=== PATIENT | male | born 1950 | race Caucasian/White ===

== ENCOUNTER 2017-12-15 01:23 | Emergency (ER) | payer OTHER | END 2017-12-15 03:07 | disposition home or self-care (01) | LOC: M ED 01:23 | DX: S01.01XA Laceration without foreign body of scalp, initial encounter (principal); W11.XXXA Fall on and from ladder, initial encounter; Y92.89 Other specified places as the place of occurrence of the external cause | CPT/HCPCS: 12001 ==

== ENCOUNTER → 2019-01-10 | Outpatient (REF) | payer MEDICARE, OTHER ==
[~2019-01-10] MED LIST: PERC5TAB12 PO; XARE10TA PO
[2019-01-10 17:40] LABS: ALT/SGPT 37 U/L (12-78); BILIRUBIN,TOTAL 0.7 MG/DL (0.2-1.0); BLOOD UREA NITROGEN 19 MG/DL (7-18); CALCIUM LEVEL 8.8 MG/DL (8.8-10.2); CARBON DIOXIDE LEVEL 28 MEQ/L (21-32); CHLORIDE LEVEL 107 MEQ/L (98-107); CHOLESTEROL LEVEL 240 MG/DL (<200); CHOLESTEROL RISK RATIO 3.428 (<5); CREATININE FOR GFR 0.78 MG/DL (0.70-1.30); FREE T4 0.98 NG/DL (0.76-1.46); GLOMERULAR FILTRATION RATE > 60.0 (>49); GLUCOSE, FASTING 85 MG/DL (70-100); HDL CHOLESTEROL 70 MG/DL (>40); LDL CHOLESTEROL 149 MG/DL (<100); NON-HDL-C 170 MG/DL; POTASSIUM SERUM 4.2 MEQ/L (3.5-5.1); SODIUM LEVEL 141 MEQ/L (136-145); THYROID STIMULATING HORMONE 0.963 uIU/ML (0.358-3.740); TOTAL PROTEIN 7.2 GM/DL (6.4-8.2); TRIGLYCERIDES LEVEL 105 MG/DL (<150)
[2019-01-10 17:54] LABS: BASO # 0.1 10^3/uL (0.0-0.2); BASO % 0.9 % (0.0-1.0); EOS # 0.1 10^3/uL (0.0-0.50); EOS % 1.6 % (0.0-3.0); HEMATOCRIT 49.3 % (42.0-52.0); HEMOGLOBIN 16.7 g/dl (13.5-17.5); LYMPH # 1.6 10^3/uL (1.5-4.5); LYMPH % 25.7 % (24.0-44.0); MEAN CORPUSCULAR HEMOGLOBIN 32.4 pg (27.0-33.0); MEAN CORPUSCULAR HGB CONC 33.9 g/dl (32.0-36.5); MEAN CORPUSCULAR VOLUME 95.5 fl (80.0-96.0); MONO # 0.6 10^3/uL (0.0-0.8); MONO % 8.9 % (0.0-5.0); NEUTROPHILS % 62.7 % (36.0-66.0); PLATELET COUNT, AUTOMATED 237 10^3/uL (150-450); RED BLOOD COUNT 5.16 10^6/uL (4.30-6.10); WHITE BLOOD COUNT 6.4 10^3/uL (4.0-10.0)
== END ==
LOC: M SFHCCLAY 11:42
PROVIDERS: ATTEND Nurse Practitioner Family
DX: I10 Essential (primary) hypertension (principal); Z23 Encounter for immunization
CPT/HCPCS: 80053; 80061; 84439; 84443; 85025; 90670; 93005; G0009; G0463

== ENCOUNTER → 2019-01-11 | Outpatient (CLI) | payer MEDICARE, BC ==
--- NOTE | 2019-01-11 11:34 | REP ---
Chest two views HISTORY: Hypertension Comparison: None The lungs are clear. The heart is normal in size. The pulmonary vasculature is normal in appearance. The bony structure is intact. IMPRESSION: No acute disease.
== END ==
LOC: M CLY 10:51
PROVIDERS: ATTEND Nurse Practitioner Family
DX: I10 Essential (primary) hypertension (principal)

== ENCOUNTER → 2021-05-23 | Outpatient (REF) | payer MEDICARE, OTHER, BC ==
[2021-05-23 12:13] LABS: BASO % 0.7 % (0.0-1.0); EOS # 0.1 10^3/uL (0.0-0.5); EOS % 2.3 % (0.0-3.0); HEMATOCRIT 50.5 % (42.0-52.0); HEMOGLOBIN 16.8 g/dl (13.5-17.5); LYMPH # 1.9 10^3/uL (1.5-5.0); LYMPH % 33.6 % (24.0-44.0); MEAN CORPUSCULAR HEMOGLOBIN 32.6 pg (27.0-33.0); MEAN CORPUSCULAR HGB CONC 33.3 g/dl (32.0-36.5); MEAN CORPUSCULAR VOLUME 98.1 fl (80.0-96.0); MONO # 0.6 10^3/uL (0.0-0.8); MONO % 10.7 % (2.0-8.0); NEUTROPHILS # 2.9 10^3/uL (1.5-8.5); NEUTROPHILS % 52.3 % (36.0-66.0); PLATELET COUNT, AUTOMATED 221 10^3/uL (150-450); RED BLOOD COUNT 5.15 10^6/uL (4.30-6.10); WHITE BLOOD COUNT 5.6 10^3/uL (4.0-10.0)
[2021-05-23 12:47] LABS: BLOOD UREA NITROGEN 12 MG/DL (7-18); CALCIUM LEVEL 8.4 MG/DL (8.8-10.2); CARBON DIOXIDE LEVEL 27 MEQ/L (21-32); CHLORIDE LEVEL 108 MEQ/L (98-107); CHOLESTEROL LEVEL 251 MG/DL (<200); CHOLESTEROL RISK RATIO 4.254 (<5); CREATININE FOR GFR 0.75 MG/DL (0.70-1.30); GLOMERULAR FILTRATION RATE > 60.0 (>42); GLUCOSE, FASTING 86 MG/DL (70-100); HDL CHOLESTEROL 59 MG/DL (>40); LDL CHOLESTEROL 159 MG/DL (<100); NON-HDL-C 192 MG/DL; POTASSIUM SERUM 4.1 MEQ/L (3.5-5.1); SODIUM LEVEL 141 MEQ/L (136-145); TRIGLYCERIDES LEVEL 167 MG/DL (<150)
== END ==
LOC: M LABDRAWC 11:57
PROVIDERS: ATTEND Physician Assistant
DX: E78.00 Pure hypercholesterolemia, unspecified (principal)

== ENCOUNTER → 2021-05-30 | Outpatient (CLI) | payer MEDICARE, BC, OTHER ==
--- NOTE | 2021-05-30 14:42 | REP ---
INDICATION: SYNCOPE AND COLLAPSE COMPARISON: None. TECHNIQUE: Real-time ultrasound evaluation and duplex Doppler interrogation of the extracranial carotid vasculature is performed. FINDINGS: There is mild plaquing and narrowing in both carotid bulbs extending into the internal and external carotid arteries. Luminal narrowing is less than 50%. There is no evidence of hemodynamically significant stenosis of either internal carotid artery. Normal flow velocities are seen. The vertebral arteries demonstrate normal direction of flow. Multiple nodules are seen in the right lobe of the thyroid measuring up to 1 cm in diameter. RIGHT LEFT Peak systolic velocity ICA 86.4 cm/s 83.2 cm/s End diastolic velocity ICA 21.2 cm/s 23.0 cm/s Peak systolic velocity CCA 115 cm/s 114cm/s Peak systolic velocity ECA 111 cm/s 98.8 cm/s ICA/CCA ratio 0.75 0.73 IMPRESSION: Bilateral luminal narrowing of the internal carotid arteries less than 50%. No evidence of hemodynamically significant stenosis. Multiple right thyroid nodules measuring up to 1 cm in diameter. Recommend formal thyroid ultrasound. <Electronically signed by Janusz Muñoz > 05/30/21 [id number]
== END ==
LOC: M RAD 14:00
PROVIDERS: ATTEND Physician Assistant
DX: R55 Syncope and collapse (principal)

== ENCOUNTER → 2021-06-19 | Outpatient (REF) | payer MEDICARE, OTHER ==
[~2021-06-19] MED LIST changes: +ACET1TAB55 PO; +ASCO250T20 PO; +VITMTA PO
[2021-06-19 16:22] LABS: FREE T4 0.92 NG/DL (0.76-1.46)
[2021-06-19 16:30] LABS: THYROGLOBULIN ANTIBODY < 15.0 U/ML (<60.0); THYROID PEROXIDASE ANTIBODY < 28.0 U/ML (<60.0)
== END ==
LOC: M SFHCCLAY 11:22
PROVIDERS: ATTEND Nurse Practitioner Family
DX: E04.1 Nontoxic single thyroid nodule (principal)
CPT/HCPCS: 84439; 84443; 86376; 86800; G0463

== ENCOUNTER → 2021-07-04 | Outpatient (CLI) | payer MEDICARE, OTHER ==
[~2021-07-04] MED LIST changes: -ACET1TAB55 PO; -ASCO250T20 PO
== END ==
LOC: M LABSMTC 10:27
PROVIDERS: ATTEND Anesthesiology
DX: Z01.812 Encounter for preprocedural laboratory examination (principal); Z20.822 Contact with and (suspected) exposure to COVID-19

== ENCOUNTER 2021-07-09 12:19 | Day surgery (SDC) | payer MEDICARE, BC, OTHER ==
[~2021-07-09] VITALS: Ht 188 cm; Wt 98.2 kg
[~2021-07-09 12:19] MED LIST changes: +LR 1,000 ML IV ONE; +ceFAZolin SOD 1 GM in D5W MINI-BAG PLUS 50 ML IV ONE
[2021-07-09 13:05] LABS: INR 1.01; PROTHROMBIN TIME 13.7 SECONDS (12.7-14.5)
[2021-07-09 13:06] LABS: PARTIAL THROMBOPLASTIN TIME 29.4 SECONDS (25.9-37.0)
[2021-07-09] MEDS ORDERED: ISOVUE-300 61% 50ML VIAL As Ordered ONE (13:37)
[2021-07-09] MEDS ORDERED: LIDOCAINE 1% SDV 30ML VIAL As Ordered ONE (13:38)
[2021-07-09] MEDS ORDERED: VANCOMYCIN 1000MG/20ML VIAL As Ordered ONE (13:38)
[2021-07-09] MEDS ORDERED: MUPIROCIN 2% OINT 22 GM TUBE As Ordered ONE (13:39)
[2021-07-09] MEDS ORDERED: propofoL 500 MG/50 ML VIAL As Ordered ONE (13:42)
[2021-07-09] MEDS ORDERED: MIDAZOLAM INJ 2MG/2ML VIAL (J2250 PER 1MG) As Ordered ONE (13:45)
[2021-07-09] MEDS ORDERED: fentaNYL 100 MCG/2 ML INJECTION (J3010) As Ordered ONE (13:46)
[2021-07-09] MEDS ORDERED: ceFAZolin 1GM VIAL (J0690 PER 500MG) As Ordered ONE (14:19)
[2021-07-09] MEDS ORDERED: ceFAZolin SOD 1 GM in D5W MINI-BAG PLUS 50 ML IV ONE (14:35)
[2021-07-09] MEDS ORDERED: LR 250 ML IV ONE (14:35)
[2021-07-09] MEDS ORDERED: ONDANSETRON 4MG/2ML VIAL As Ordered ONE (14:56)
[2021-07-09] MEDS ORDERED: dexameTHASONE 4 MG/ML 1ML VIAL (J1100 PER 1MG) As Ordered ONE (14:57)
[2021-07-09] MEDS ORDERED: LR 1,000 ML IV SCH ×2 (15:00→17:40)
[2021-07-09] MEDS ORDERED: propofoL 200 MG/20 ML VIAL As Ordered ONE ×2 (15:45→16:19)
--- NOTE | 2021-07-09 16:55 | REP ---
INDICATION: DUAL PACEMAKER INSERTION. COMPARISON: None. TECHNIQUE: One view. 6 minutes 18 seconds of fluoroscopy time is reported. FINDINGS: A single last image hold fluoroscopically obtained spot radiograph of the chest documents pacemaker lead position. IMPRESSION: Procedural imaging. <Electronically signed by Brady Perea > 07/09/21 [id number]
[2021-07-09] MEDS ORDERED: ONDANSETRON 4MG/2ML VIAL IV PRN (17:40)
[2021-07-09] MEDS ORDERED: fentaNYL 100 MCG/2 ML INJECTION (J3010) IV PRN (17:40)
[2021-07-09] MEDS ORDERED: ACETAMINOPHEN TAB 650MG DOSE (2X325MG) PO PRN (17:55)
--- NOTE | 2021-07-09 17:55 | REP ---
INDICATION: POST OP IN PACU. COMPARISON: 01/11/2019 two view exam TECHNIQUE: Portable FINDINGS: The technique utilized in obtaining the radiograph has magnified the cardiac silhouette and accentuated the interstitial markings. Since the last examination a dual chamber bipolar pacemaker device has been placed. There is minimal left CP angle blunting. Lung chen are otherwise clear and unchanged. The osseous structures are stable and intact. IMPRESSION: Minimal left CP angle blunting. Consider follow-up. A tiny left pleural effusion cannot be ruled out. <Electronically signed by Neville Prasad > 07/09/21 [id number]
[2021-07-09 18:15] VITALS: BP 123/72
[2021-07-09 18:45] VITALS: BP 142/81
[2021-07-09 19:45] VITALS: BP 140/71
[2021-07-09 21:00] VITALS: BP 125/62
[2021-07-09] MEDS: ASCORBIC ACID 250 MG TAB PO SCH (21:04)
[2021-07-09 22:00] VITALS: BP 113/69
[2021-07-09 23:00] VITALS: BP 126/72
[2021-07-10 04:00] VITALS: BP 127/74
[2021-07-10 08:00] VITALS: BP 105/69
--- NOTE | 2021-07-10 08:33 | REP ---
INDICATION: Pacemaker.. COMPARISON: Yesterday TECHNIQUE: PA and lateral FINDINGS: The superior mediastinal structures are midline. The cardiac silhouette is unremarkable in size, shape, and position. The diaphragmatic surfaces of the lungs are regular, and the costophrenic angles are clear. The pulmonary chen are clear. The imaged osseous structures are intact. The dual chamber bipolar pacemaker devices unchanged. IMPRESSION: There is no acute cardiopulmonary disease. Left CP angle blunting seen on the prior examination has resolved. <Electronically signed by Neville Prasad > 07/10/21 [id number]
[2021-07-10] MEDS: ASCORBIC ACID 250 MG TAB PO SCH (09:14)
[2021-07-10] MEDS ORDERED: ASCO250T20 PO (10:35)
[2021-07-10] MEDS ORDERED: ACET1TAB55 PO (10:35)
--- NOTE | 2021-07-10 13:23 | RO ---
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 PROCEDURE: Implantation of permanent dual chamber pacemaker (Medtronic) SURGEON: Isidro Rojas MD GENERAL [employer]ARD SUPERVISOR: None. ANESTHESIA: Lidocaine 1% local/monitored anesthetic care. SPECIMENS: None. ESTIMATED BLOOD LOSS: 10 mL. No blood products replaced. DRAINS: None. COMPLICATIONS: None. DESCRIPTION OF PROCEDURE: The patient is prepped and draped over the left pectoral region. The 3M Ioban film was applied. Lidocaine 1% was used for local anesthetic. A left subclavian venogram was performed using 20 mm of a mixture containing 5 parts Isovue to 1 part normal saline, which as injected via peripheral vein in the left upper extremity. This was used in realtime fluoroscopy to obtain percutaneous access with the micropuncture needle into the extrathoracic portion of the left subclavian vein. This was exchanged for a guidewire that came with the micropuncture needle. This was exchanged to a guidewire that came with the 7 romansh sheath. Next, an incision approximately 3 inches in length was made 1 cm below the skin entry site of the guidewire using a Peak PlasmaBlade. The Peak PlasmaBlade was used to dissect down to and through the Amilcar's fascia. The pacemaker pocket was then formed using blunt dissection using 2 fingers to make a pocket in a caudal direction the Amilcar's from the prepectoral fascia. The guidewire was then pulled through the skin incision site. Next, I obtained a separate venous access, this time at the level at the pectoral muscle and more lateral to the first guidewire using a separate micropuncture needle and using fluoroscopy as a guide along with guidance from the direction of the first guidewire. This guidewire was exchanged for a guidewire that came with the other 7 [place] sheath. Next, I took a 7 [place]i sheath introducer and placed it more lateral to the guidewires and this was used for vein access for the right ventricular lead. The right ventricular lead was placed under fluoroscopic guidance into the RV apex, where secured with a total of 8 turns. This found to be electrically and anatomically satisfactory and no diaphragmatic stimulation could be palpated on either side of the diaphragm with 8 volts high output pacing. Next, the 7 [place] sheath was broken apart and removed. The ventricular lead was secured to the pectoral muscle using two individual sutures consisting of 0 Ethibond to using the tie-down sleeve to secure the lead to the pectoral muscle. Next, the other 7 romansh sheath introducer was placed over more medial of the guidewires and was used for vein access for the right atrial lead. The first position tried for the atrial lead had poor sensing with the helix extended. I then placed the helix back into the lead and repositioned the lead into the second position. The helix was extended. This position was found to be electrically and anatomically satisfactory. It was secured with a total of 10 turns. The sheath was broken apart and removed. The atrial lead was then secured to the pectoral muscle supplied tie-down sleeve using two individual sutures consisting of 0 Ethibond. Next, another 0 Ethibond suture was placed to the pectoral muscle in the lateral aspect of the pacemaker pocket. The internal pins were then placed into their respective ports in the header of the pacemaker pulse generator and each one was secured by tightening the set screws with a Hex screwdriver. A pull test was applied to each internal pin to demonstrate it was secured within the header. The excess lead material was then coiled underneath the pacemaker pulse generator and placed into pacemaker pocket along with the pacemaker pulse generator with the squad leader material below and pacemaker pulse generator on top. The pacemaker pulse generator was then secured to the pectoral muscle with a previously placed 0 Ethibond suture, this secured the pectoral muscle. The deep layer was closed using individual sutures consisting of 2-0 Vicryl. A few additional 3-0 Vicryl sutures were used to approximate the more superficial layer. Next, I used a 4-0 Biosyn suture in continuous fashion applied subcuticular to approximate the skin with the free ends protruding 1 cm through the skin on both ends of the incision. The Biosyn suture was then cut at the level of the skin on both sides. A Prineo dressing was applied. The patient tolerated the procedure well without any immediate complications. The right atrial lead implanted was a e-Tag model 4076-52 cm with serial number [id number]. Testing in the operating room of the right atrial lead via the pulse analyzer and bipolar configuration showed capture threshold as 0.625 volts and 0.4 milliseconds with lead impedence of 475 ohms and P-wave 2.25 millivolts. Device base testing in the operating room for the right atrial lead showed T waves of 2.25 millivolts for lead impedence of 495 ohms with capture threshold at 0.5 volts at 0.4 milliseconds. The right ventricular lead implanted was a Medtronic model 4076-58 cm. with serial number [id number]. Testing in the operating room with the pulse analyzer and bipolar configuration showed capture threshold to the right ventricular lead to be 0.65 millivolts and 0.4 milliseconds with lead impedence of 1,121 ohms and R wave amplitude of 4.8 millivolts. Device base testing in the operating room of right ventricular lead showed R wave amplitude of 4.2 millivolts with lead impedence of 817 ohms and capture threshold of 0.5 volts at 0.4 milliseconds. The pacemaker pulse generator implanted was a e-Tag [place] XT DR VAN Mccullough with model number [id number] and head serial number [id number]. [facility] CENTERLorraine
--- NOTE | 2021-07-12 10:23 | ECGEPIP ---
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 No prior ECG available for comparison at the time of interpretation. Electronically Signed on 07-12-2021 10:22:36 EDT by Isidro Rojas
== END 2021-07-10 12:15 | disposition home or self-care (01) ==
LOC: M SDC 12:19 → M PCU 18:05 → M SDC 07-10 12:15
PROVIDERS: ATTEND Internal Medicine Cardiovascular Disease
DX: R55 Syncope and collapse (principal); I45.10 Unspecified right bundle-branch block; R94.31 Abnormal electrocardiogram [ECG] [EKG]; Z87.891 Personal history of nicotine dependence
CPT/HCPCS: 33208; 36415; 71045; 71046; 76000; 85610; 85730; 93005; C1785; C1898; J0690; J1100; J2250; J2405; J3010; J3370; Q9967